=== PATIENT | female | born 1995 | race Caucasian/White ===

== ENCOUNTER 2017-10-17 10:19 | Emergency (ER) | payer BC ==
[~2017-10-17] VITALS: Ht 162.6 cm; Wt 108.4 kg
[2017-10-17 10:26] VITALS: Ht 162.6 cm; Wt 108.4 kg
[2017-10-17 12:33] VITALS: BP 114/66
== END 2017-10-17 12:43 | disposition home or self-care (01) ==
LOC: ED 10:19
DX: G43.909 Migraine, unspecified, not intractable, without status migrainosus (principal)
CPT/HCPCS: J0780; J1885

== ENCOUNTER 2019-01-01 12:56 | Emergency (ER) | payer BC ==
[~2019-01-01] VITALS: Ht 162.6 cm; Wt 106.1 kg
[2019-01-01 13:04] VITALS: Ht 162.6 cm; Wt 106.1 kg
[2019-01-01 13:38] VITALS: BP 120/73
== END 2019-01-01 13:38 | disposition home or self-care (01) ==
LOC: ED 12:56
DX: B02.9 Zoster without complications (principal); G43.911 Migraine, unspecified, intractable, with status migrainosus